=== PATIENT | female | born 1985 | race Caucasian/White ===

== ENCOUNTER 2022-05-08 11:53 | Emergency (ER) | payer MEDICAID ==
[~2022-05-08] VITALS: Ht 172.7 cm; Wt 59.0 kg
[2022-05-08 13:12] VITALS: BP 113/73
[2022-05-08] MEDS ORDERED: IBUP-1957 PO (14:31)
== END 2022-05-08 14:45 | disposition home or self-care (01) ==
LOC: ER 11:53
DX: S62.637A Displaced fracture of distal phalanx of left little finger, initial encounter for closed fracture (principal); X58.XXXA Exposure to other specified factors, initial encounter; Y93.75 Activity, martial arts; Y92.89 Other specified places as the place of occurrence of the external cause; Y99.8 Other external cause status
CPT/HCPCS: 73140-TC